=== PATIENT | male | born 1980 | race Caucasian/White ===

== ENCOUNTER 2024-06-15 07:36 | Outpatient (CLI) | payer OTHER, SELFPAY ==
--- NOTE | 2024-06-15 | CA_ITS ---
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 4.20 mmHg Mitral Valve MV E Max Denis. 58.0 (40-130 cm/s) MV A Velocity 86.0 (40-130 cm/s) E/A Ratio 0.67 MV PHT 44.0 ms Pulmonary Valve PV Peak Velocity 177.0 (50-150 cm/s) Tricuspid Valve TR P. Velocity 187.00 cm/s RAP Estimate 10.00 mmHg RVSP 24.00 mmHg Left Ventricle The left ventricle is normal size. The left ventricular systolic function is normal. The left ventricular ejection fraction is within the normal range. Proximal septal thickening is present. There is normal LV segmental wall motion. Transmitral Doppler flow pattern suggests impaired LV relaxation. LVEF is 55%. Right Ventricle The right ventricle is normal size. The right ventricular systolic function is normal. Atria The left atrium size is normal. The right atrium size is normal. There is no Doppler evidence of interatrial shunt. Aortic Valve Aortic valve opens well. There is no aortic valvular stenosis. No aortic regurgitation is present. Mitral Valve The mitral valve is normal in structure. No evidence of mitral valve stenosis. Trace mitral regurgitation. Tricuspid Valve Tricuspid valve is grossly normal in structure and function. Trace tricuspid regurgitation. There is insufficient TR jet to estimate RVSP. Pulmonic Valve The pulmonary valve is normal in structure. Mild pulmonic regurgitation. Great Vessels The aortic root is normal in size. IVC is normal in size and collapses >50% with inspiration. Pericardium There is no pericardial effusion. Other Information Study Quality: Adequate Conclusion Normal biventricular systolic function. Mild PI. Electronically signed by : Soha Ramos MD 06/19/2024 01:20:10
[2024-06-15 07:49] LABS: Microscopic, Urine URINE MICROSCOPIC (MICROSCOPIC)
[2024-06-15 08:26] LABS: Appearance,Urine CLEAR (Clear); Bilirubin,Urine Negative (Negative); Blood, Urine Negative (Negative); Color,Urine YELLOW (Yellow); Ketones,Urine Negative (Negative); Leukocyte Esterase,Urine Negative (Negative); Nitrate,Urine Negative (Negative); Protein,Urine Negative (Negative); Specific Gravity, Urine 1.025 (1.005-1.030); Urobilinogen,Urine 0.2 EU/dl (0.2)
[2024-06-15 08:32] LABS: Glucose,Urine (UA) 3+ (Negative)
--- NOTE | 2024-06-15 08:44 | ECG_ITS ---
APPROVED REPORT Exam: Resting ECG HR:87 bpm ECG Measurements Heart Rate 87 AXES AZ 173 P 58 QRSd 89 QRS 11 QT 344 T 54 QTc 388 Conclusion SINUS RHYTHM NONSPECIFIC T-WAVE ABNORMALITY BORDERLINE ECG UNCONFIRMED REPORT Electronically signed by : Tirso Gary MD 06/16/2024 19:34:51
[2024-06-15 09:02] LABS: Alanine Aminotransferase 24 U/L (12-78); Albumin Level 4.6 g/dl (3.5-5.0); Albumin/Globulin Ratio 1.5 (1.1-1.8); Alkaline Phosphatase 67 U/L (38-126); Anion Gap 12.8 mEq/L (5-15); Aspartate Amino Transferase 24 U/L (17-59); Bilirubin,Total 0.6 mg/dl (0.2-1.3); Blood Urea Nitrogen 24 mg/dl (9-20); Calcium 9.9 mg/dl (8.4-10.2); Carbon Dioxide 28 mmol/L (22.0-30.0); Chloride 102 mmol/L (98-107); Estimated Glomerular Filt Rate 60 ml/min (>60); GFR (African American) 72 ML/MIN (>60); Glucose 291 mg/dl (74-100); Potassium 4.8 mmoL/L (3.5-5.1); Sodium 138 mmol/L (136-145); Total Protein,Serum 7.6 g/dl (6.3-8.2)
[2024-06-15 09:26] LABS: Squamous Epithelial Cell,Urine Occasional #/hpf (0-5)
== END 2024-06-15 23:59 | disposition home or self-care (01) ==
LOC: RT 07:41
PROVIDERS: PCP Chiropractor; Visit Provider Chiropractor
DX: R00.0 Tachycardia, unspecified (principal); E11.9 Type 2 diabetes mellitus without complications
CPT/HCPCS: 36415; 80053; 81001; 93005; 93306